=== PATIENT | male | born 1995 | race Caucasian/White ===

== ENCOUNTER 2021-12-11 20:38 | Observation (INO) ==
[2021-12-11] MEDS ORDERED: SODIUM CHLORIDE 0.9% 1,000 ML IV STA (21:55)
[2021-12-11] MEDS ORDERED: THIAMINE INJ 100 MG, FOLIC ACID INJ 1 MG, MAGNESIUM SULF INJ 2 GM, MULTIVITAMIN INJ 10 ... IV STA (21:55)
[2021-12-11] MEDS ORDERED: ONDANSETRON 4 MG/2 ML VIAL IV STA (21:56)
[2021-12-11 22:30] LABS: Basophils # 0.1 10*3/uL (0.0-0.2); Basophils % 0.3 % (0.0-0.8); Eosinophils # 0.1 10*3/uL (0.0-0.87); Eosinophils % 0.4 % (0.00-10.9); Hematocrit 43.6 VOL% (42.0-52.0); Hemoglobin 15.2 GM/DL (14.0-18.0); Immature Granulocytes Absolute 0.21 #; Lymphocytes # 1.7 10*3/uL (1.4-4.0); Lymphocytes % 8.3 % (21.2-54.2); Mean Corpuscular HGB Conc 34.9 GM/DL (32-36); Mean Corpuscular Volume 76.2 FL (87-102); Mean Platelet Volume 11.2 FL (9.6-12.0); Monocytes # 0.9 10*3/uL (0.11-0.8); Monocytes % 4.5 % (1.7-12.7); Neutrophils % 85.5 % (38.7-73.9); Platelet Count 264 T/CUMM (130-400); Red Blood Count 5.72 MC/CUMM (3.8-5.5); Red Cell Distribution Width 12.4 % (9.3-17.3); White Blood Count 20.1 T/CUMM (4-12)
[2021-12-11 22:37] LABS: Albumin 4.2 G/DL (3.4-5.0); Bilirubin,Total 0.5 MG/DL (0.20-1.00); Calcium 8.9 MG/DL (8.5-10.1); Potassium 3.9 MMOL/L (3.5-5.1); Total Protein 7.7 G/DL (6.4-8.2)
[2021-12-11 23:52] LABS: Bilirubin,Urine Negative (Negative); Blood, Urine Trace mg/dL (Negative); Glucose,Urine (UA) 500 mg/dL (Negative); Ketones,Urine 80 mg/dL (Negative); Nitrite,Urine Negative (Negative); Protein,Urine Negative (Negative); Urine Appearance Clear (Clear); Urine Color Yellow (Yellow); Urine Urobilinogen 0.2 eU/dL (<2.0); Urine pH 5.5 (4.5-8.0)
[2021-12-11 23:53] LABS: Mucus,Urine Occasional /LPF (Occasional); RBC,Urine 1 /HPF (0-4)
[2021-12-12 00:01] LABS: Barbiturates Screen,Urine Negative (Negative); Benzodiazepines Screen,Urine Negative (Negative); Cannabinoid Screen,Urine Positive (Negative); Opiate Screen,Urine Negative (Negative); Phencyclidine Screen,Urine Negative (Negative)
[2021-12-12] MEDS ORDERED: SODIUM CHLORIDE 0.9% 1,000 ML IV STA (00:32)
[2021-12-12 00:56] LABS: Arterial Base Excess iSTAT -5 MMOL/L (-2.5-2.5); Arterial O2 Saturation iSTAT 92 % (95-100); Arterial PCO2 iSTAT 41 MM HG (35-48); Arterial PO2 iSTAT 69 MM HG (80-95); Arterial Total CO2 iSTAT 22 MMO/L (23-27); Arterial pH iSTAT 7.316 (7.35-7.45)
[2021-12-12] MEDS ORDERED: ONDANSETRON 4 MG/2 ML VIAL IV STA (02:33)
[2021-12-12] MEDS ORDERED: LACTATED RINGERS 1,000 ML IV ONE ×2 (02:49→04:55)
[2021-12-12 03:21] LABS: INR 0.9; PT Patient Result 10.1 SECS (10.1-12.1); Partial Thromboplastin Time 26.6 SECS (23.7-32.9)
[2021-12-12 03:39] LABS: Albumin 4.3 G/DL (3.4-5.0); Bilirubin,Total 0.7 MG/DL (0.20-1.00); Calcium 8.8 MG/DL (8.5-10.1); Osmolality,Calculated 283.7 MOS/KG (273-304); Potassium 4.2 MMOL/L (3.5-5.1); Total Protein 7.9 G/DL (6.4-8.2)
[2021-12-12 03:54] LABS: Basophils % 0.4 % (0.0-0.8); Eosinophils # 0.1 10*3/uL (0.0-0.87); Eosinophils % 0.5 % (0.00-10.9); Hematocrit 41.5 VOL% (42.0-52.0); Hemoglobin 14.2 GM/DL (14.0-18.0); Lymphocytes # 1.6 10*3/uL (1.4-4.0); Lymphocytes % 14.6 % (21.2-54.2); Mean Corpuscular HGB Conc 34.2 GM/DL (32-36); Mean Platelet Volume 11.2 FL (9.6-12.0); Monocytes # 0.4 10*3/uL (0.11-0.8); Monocytes % 3.9 % (1.7-12.7); Platelet Count 237 T/CUMM (130-400); Red Blood Count 5.39 MC/CUMM (3.8-5.5); Red Cell Distribution Width 12.5 % (9.3-17.3); White Blood Count 10.8 T/CUMM (4-12)
[2021-12-12] MEDS ORDERED: SODIUM CHLORIDE 0.9% IV STA (04:38)
[2021-12-12] MEDS ORDERED: PROMETHAZINE IV STA (04:38)
[2021-12-12] MEDS ORDERED: PROMETHAZINE 25 MG/1 ML VIAL ONE (04:48)
[2021-12-12] MEDS ORDERED: DOCUSATE SODIUM 100 MG CAPSULE PO PRN (04:48)
[2021-12-12] MEDS ORDERED: DEXTROSE 10% 250 ML BAG IV PRN (04:48)
[2021-12-12] MEDS ORDERED: DEXTROSE 50% 25 GM/50 ML VIAL IV PRN (04:48)
[2021-12-12] MEDS ORDERED: GLUCAGON 1 MG VIAL IM PRN (04:48)
[2021-12-12] MEDS ORDERED: LACTATED RINGERS 1,000 ML IV SCH (05:00)
[2021-12-12] MEDS ORDERED: LORazepam 1 MG TABLET PO PRN (05:10)
[2021-12-12] MEDS ORDERED: THIAMINE INJ 100 MG, FOLIC ACID INJ 1 MG, MULTIVITAMIN INJ 10 ML in SODIUM CHLORIDE 0.9... IV SCH (05:30)
[2021-12-12 05:47] LABS: Hepatitis B Core IgM Quant 0.17 Index; Hepatitis B Surface Ag Quant < 0.10 Index; Hepatitis B Surface Ag Result Non-Reactive (NonReactive); Hepatitis C Virus Ab Quant < 0.02 Index; Hepatitis C Virus Ab Result Non-Reactive (NonReactive)
[2021-12-12 06:51] LABS: Basophils % 0.4 % (0.0-0.8); Eosinophils # 0.1 10*3/uL (0.0-0.87); Eosinophils % 1.1 % (0.00-10.9); Hemoglobin 12.7 GM/DL (14.0-18.0); Immature Granulocytes % 0.4 %; Immature Granulocytes Absolute 0.04 #; Lymphocytes # 1.8 10*3/uL (1.4-4.0); Lymphocytes % 20.1 % (21.2-54.2); Mean Corpuscular HGB Conc 34.3 GM/DL (32-36); Mean Corpuscular Volume 76.8 FL (87-102); Mean Platelet Volume 11.2 FL (9.6-12.0); Monocytes # 0.6 10*3/uL (0.11-0.8); Monocytes % 6.5 % (1.7-12.7); Neutrophils % 71.5 % (38.7-73.9); Platelet Count 217 T/CUMM (130-400); Red Blood Count 4.82 MC/CUMM (3.8-5.5); Red Cell Distribution Width 12.4 % (9.3-17.3)
[2021-12-12 07:05] LABS: Calcium 7.9 MG/DL (8.5-10.1); Osmolality,Calculated 278.7 MOS/KG (273-304); Potassium 3.9 MMOL/L (3.5-5.1)
[2021-12-12] MEDS ORDERED: INSULIN GLARGINE 100 UNIT/ML SUBCUT SCH (09:00)
[2021-12-12] MEDS: INSULIN LISPRO 100 UNIT/ML SUBCUT SCH ×3 (09:04→16:31)
[2021-12-12] MEDS: THIAMINE IV SCH ×2 (11:31→17:26)
[2021-12-12] MEDS: FOLIC ACID IV SCH ×2 (11:31→17:26)
[2021-12-12] MEDS: LACTATED RINGERS MULTIVITAMIN IV SCH ×2 (11:31→17:26)
[2021-12-12] MEDS: PANTOPRAZOLE 40 MG TABLET PO SCH (18:22)
[2021-12-12] MEDS: PARoxetine 20 MG TABLET PO SCH (18:29)
[2021-12-12] MEDS: ACETAMINOPHEN 325 MG TABLET PO PRN (18:53)
[2021-12-13] MEDS: THIAMINE IV SCH ×2 (02:25→05:05)
[2021-12-13] MEDS: LACTATED RINGERS MULTIVITAMIN IV SCH ×2 (02:25→05:05)
[2021-12-13] MEDS: FOLIC ACID IV SCH ×2 (02:25→05:05)
[2021-12-13 06:20] LABS: Albumin 3.2 G/DL (3.4-5.0); Bilirubin,Total 0.9 MG/DL (0.20-1.00); Calcium 8.5 MG/DL (8.5-10.1); Osmolality,Calculated 282.5 MOS/KG (273-304); Potassium 3.7 MMOL/L (3.5-5.1); Total Protein 6.2 G/DL (6.4-8.2)
[2021-12-13] MEDS: lisinopriL 20 MG TABLET PO SCH (09:25)
[2021-12-13] MEDS: PANTOPRAZOLE 40 MG TABLET PO SCH (09:25)
[2021-12-13] MEDS: PARoxetine 20 MG TABLET PO SCH (09:25)
[2021-12-13] MEDS: INSULIN GLARGINE 100 UNIT/ML SUBCUT SCH (09:26)
[2021-12-13] MEDS: INSULIN LISPRO 100 UNIT/ML SUBCUT SCH ×2 (09:26→17:04)
[2021-12-13] MEDS: ACETAMINOPHEN 325 MG TABLET PO PRN (15:17)
[2021-12-14 07:08] LABS: Basophils # 0.1 10*3/uL (0.0-0.2); Eosinophils # 0.3 10*3/uL (0.0-0.87); Eosinophils % 4.1 % (0.00-10.9); Hematocrit 41.2 VOL% (42.0-52.0); Hemoglobin 13.9 GM/DL (14.0-18.0); Immature Granulocytes % 0.3 %; Immature Granulocytes Absolute 0.02 #; Lymphocytes % 31.6 % (21.2-54.2); Mean Corpuscular HGB Conc 33.7 GM/DL (32-36); Mean Corpuscular Volume 77.9 FL (87-102); Mean Platelet Volume 11.8 FL (9.6-12.0); Monocytes # 0.6 10*3/uL (0.11-0.8); Monocytes % 10.2 % (1.7-12.7); Neutrophils % 52.8 % (38.7-73.9); Platelet Count 211 T/CUMM (130-400); Red Blood Count 5.29 MC/CUMM (3.8-5.5); Red Cell Distribution Width 12.5 % (9.3-17.3); White Blood Count 6.3 T/CUMM (4-12)
[2021-12-14 07:18] LABS: Albumin 3.6 G/DL (3.4-5.0); Bilirubin,Total 0.8 MG/DL (0.20-1.00); Calcium 9.2 MG/DL (8.5-10.1); Osmolality,Calculated 283.7 MOS/KG (273-304); Potassium 3.5 MMOL/L (3.5-5.1)
[2021-12-14 07:31] LABS: Albumin 3.7 G/DL (3.4-5.0); Bilirubin,Direct 0.11 MG/DL (0.0-0.20); Bilirubin,Indirect 0.6 MG/DL (0.0-1.0); Bilirubin,Total 0.7 MG/DL (0.20-1.00); Total Protein 6.9 G/DL (6.4-8.2)
[2021-12-14 07:39] VITALS: BP 135/80
[2021-12-14] MEDS: INSULIN GLARGINE 100 UNIT/ML SUBCUT SCH (08:43)
[2021-12-14] MEDS: INSULIN LISPRO 100 UNIT/ML SUBCUT SCH (08:44)
[2021-12-14] MEDS: lisinopriL 20 MG TABLET PO SCH (08:44)
[2021-12-14] MEDS: PARoxetine 20 MG TABLET PO SCH (08:44)
[2021-12-14] MEDS: PANTOPRAZOLE 40 MG TABLET PO SCH (08:44)
[2021-12-18 06:46] LABS: GAD65 Ab Assay, S 0.32 nmol/L (<= 0.02)
== END 2021-12-14 11:48 | disposition home or self-care (01) ==
LOC: N.ED 20:38 → N.EDINP 20:38 → SUATTDRO 12-12 04:58 → N.3E 12-12 05:02
PROVIDERS: ADMIT Family Medicine; ATTEND Internal Medicine